=== PATIENT | female | born 1945 | race Caucasian/White ===

== ENCOUNTER 2016-09-20 17:27 | Emergency (ER) | payer MEDICARE, OTHER ==
--- NOTE | 2016-09-20 18:16 | ER PHYSICIAN DOCUMENTATION ---
Physician Documentation [facility] Name:Traci Gilbert Age:71 yrs Sex:Female :1945 Arrival Date:09/20/2016 Time:17:27 Bed5 Private MD:Jose Carlos Rivas ED, Tom Disposition: 09/20 18:51 Chart complete. tl1 Disposition: 09/20/16 18:05 Discharged to Home/Self Care. Impression: Dysfunctional Eustachian Tube. - Condition is Good. - Prescriptions for Ultram 50 mg Oral Tablet - take 1 tablet by ORAL route every 6 hours As needed; 30 tablet. Zofran 4 mg Oral Tablet - take 1-2 tablet by ORAL route every 4-6 hours As needed; 10 tablet. - Medical Reconciliation form form. - Follow up: Jose Carlos Rivas MD; When: 2 - 3 days; Reason: Recheck today's complaints, Continuance of care. Follow up: Private Physician; When: 1 - 2 days; Reason: Recheck today's complaints, Continuance of care. - Problem is new. - Symptoms are unchanged. HPI: 17:33 This 71 yrs old Female presents to ER with complaints of Ear Pain - L. tl1 17:35 This 71 yrs old Female presents to ER via Private Vehicle with complaints of tl1 Ear Pain - L. 17:33 The patient presents with pain. The complaints affect the left ear. tl1 17:35 Onset: The symptom(s)/episode began/occurred suddenly, at 10:00. This pain came on tl1 while she was riding in the car and was approaching [place]; a sharp pressure like feeling that waxes and wanes. She has had an intermittent non-pulsatile hissing sound and decreased hearing in her left ear as well. . 17:35 She says she has been told that she has an abnormal eustachian tube on the left. She tl1 also has a long h/o sinus problems, for which she has been seeing Dr Frey in [place], for years. She says she has never had sinus surgery. She denies sinus pain, dental pain, sore throat. She does have chronic post-nasal drip, which she thinks is a little worse than usual.. She denies any recent URI symptoms. . Historical: - Allergies: Toradol; Norvasc; PENICILLINS; Cymbalta; Bactrim DS; Codeine; Macrobid; Levaquin; Ultracet; Ciprofloxacin; - Home Meds: 1. 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 - Ebola Screening: : Patient negative for fever greater than or equal to 101.5 degrees Fahrenheit, and additional compatible Ebola Virus Disease symptoms. Patient denies exposure to infectious person. Patient denies travel to an Ebola-affected area in the 21 days before illness onset. No symptoms or risks identified at this time. . - Immunization history: Flu Vaccine < 1 year. - Social history: Smoking status: Patient states was never smoker of tobacco. ROS: 17:40 ENT: Positive for ear pain. tl1 17:40 All other systems are negative. Exam: 17:40 Constitutional: This is a well developed, well nourished patient who is awake, alert, tl1 and in no acute distress. 17:40 Head/Face: Normocephalic, atraumatic. tl1 17:40 Eyes: Pupils equal round and reactive to light, extra-ocular motions intact. Lids and lashes normal. Conjunctiva and sclera are non-icteric and not injected. Cornea within normal limits. Periorbital areas with no swelling, redness, or edema. 17:40 ENT: External ear(s): are unremarkable, Ear canal(s): are normal, TM's: slight erythema of the upper TMs bilaterally, over the upper aspect of the handle of the malleus and the pars flaccida, left greater than right. The TMs are otherwise normal bilaterally with normal light reflex. 17:40 Neck: External neck: is normal, ROM/movement: is normal, Lymph nodes: no appreciated lymphadenopathy. 17:40 Cardiovascular: Rate: normal, Rhythm: regular. 17:40 Respiratory: Respirations: normal. Vital Signs: 17:35 Weight 74.84 kg (R); Height 5 ft. 4 in. (162.56 cm) (R); Pain 7/10; tg 17:40 BP 140 / 69; Pulse 81; Resp 16; Temp 98.1(O); Pulse Ox 92% on R/A; tg 17:35 Body Mass Index 28.32 (74.84 kg, 162.56 cm) tg MDM: 17:32 Patient medically screened. tl1 17:35 Differential diagnosis: otitis media, otitis externa, ruptured TM, acute otalgia, tl1 barotrauma , sinusitis, dental infection, pharyngitis. EUSTACHIAN TUBE DYSFUNCTION far more likely. Data reviewed: vital signs, nurses notes, and as a result, I will discharge patient. Counseling: I had a detailed discussion with the patient and/or guardian regarding: the historical points, exam findings, and any diagnostic results supporting the discharge/admit diagnosis, the need for outpatient follow up, to return to the emergency department if symptoms worsen or persist or if there are any questions or concerns that arise at home. Response to treatment: There is no appreciated change of the patient's symptoms at this time, and as a result, I will discharge patient. ED course: No change. . Dispensed Medications: No medications were administered Signatures: Yousif Mccord RN RN tg Mario De La Garza MD MD tl1
--- NOTE | 2016-09-20 18:16 | ER NURSING DOCUMENTATION ---
Nurse's Notes Name:Traci Gilbert Age:71 yrs Sex:Female :1945 Arrival Date:09/20/2016 Time:17:27 Bed5 Private MD:Jose Carlos Rivas Diagnosis:Dysfunctional Eustachian Tube Presentation: 09/20 17:34 Presenting complaint: Patient states: Left ear pain began this [place] Transition of care: patient was not received from another setting of care. 17:34 Acuity: LOUIS 4 tg 17:34 Method Of Arrival: Private Vehicle tg Triage Assessment: 17:38 General: Appears in no apparent distress, well groomed, Behavior is cooperative, tg pleasant. Pain: Complains of pain in left ear. EENT: deferred to Dr. De La Garza's exam. Neuro: Level of Consciousness is awake, alert. Derm: Skin is pink, warm & dry. Historical: - Allergies: Toradol; Norvasc; PENICILLINS; Cymbalta; Bactrim DS; Codeine; Macrobid; Levaquin; Ultracet; Ciprofloxacin; - Home Meds: 1. 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 - Ebola Screening: : Patient negative for fever greater than or equal to 101.5 degrees Fahrenheit, and additional compatible Ebola Virus Disease symptoms. Patient denies exposure to infectious person. Patient denies travel to an Ebola-affected area in the 21 days before illness onset. No symptoms or risks identified at this time. . - Immunization history: Flu Vaccine < 1 year. - Social history: Smoking status: Patient states was never smoker of tobacco. Screenin:37 Infectious Disease Risk Unable to Obtain. Abuse screen: Denies threats or abuse. Denies tg injuries from another. Nutritional screening: Unable to Obtain. Vital Signs: 17:35 Weight 74.84 kg (R); Height 5 ft. 4 in. (162.56 cm) (R); Pain 7/10; tg 17:40 BP 140 / 69; Pulse 81; Resp 16; Temp 98.1(O); Pulse Ox 92% on R/A; tg 17:35 Body Mass Index 28.32 (74.84 kg, 162.56 cm) tg ED Course: 17:30 Patient arrived in ED. ama 17:30 Jose Carlos Rivas MD is Private Physician. ama 17:32 Mario De La Garza MD is Attending Physician. tl1 17:34 Yousif Mccord, LEONID is Primary Nurse. tg 17:35 Triage completed. tg 17:38 Valuables Remains with patient. tg 18:03 Jose Carlos Rivas MD is Referral Physician. tl1 Administered Medications: No medications were administered Outcome: 18:05 Discharge ordered by . tl1 18:14 Discharged to home ambulatory, with friend. tg 18:14 Condition: stable 18:14 Discharge Assessment: Patient awake and alert. 18:14 Discharge instructions given to patient, Pt does not know of any allergy to ultram, does not know why it is listed in her chart, does not know of any previous reactions. Instructed on discharge instructions, follow up and referral plans. medication usage, Prescriptions given X 2. 18:15 Patient left the ED. tg Signatures: Yousif Mccord RN RN Michael Meza, Reg Reg Mario Carlin MD MD tl1
== END 2016-09-20 18:15 | disposition home or self-care (01) ==
LOC: ER 17:27
DX: H69.82 Other specified disorders of Eustachian tube, left ear (principal); R09.82 Postnasal drip; I10 Essential (primary) hypertension; Z79.899 Other long term (current) drug therapy
CPT/HCPCS: 99282; 99283

== ENCOUNTER 2016-10-13 11:45 | Emergency (ER) | payer MEDICARE, OTHER ==
[2016-10-13 12:35] LABS: BASOPHILS 0.7 % (0.0-2.0); EOSINOPHILS# 0.1 X 10^3uL (0.0-0.4); HEMATOCRIT 43.4 % (36.0-48.0); HEMOGLOBIN 14.6 g/dL (12.0-16.0); LYMPHOCYTES 27.2 % (20.0-40.0); LYMPHOCYTES# 1.4 X 10^3uL (0.8-3.8); MEAN CELL VOLUME 90.6 fL (80.0-100.0); MEAN CORPUS. HGB CONCENTRATION 33.6 g/dL (32.0-36.0); MEAN CORPUSCULAR HEMOGLOBIN 30.5 pg (29.0-35.0); MEAN PLATELET VOLUME 7.4 fL (7.4-10.4); MONOCYTES 7.5 % (2.0-10.0); MONOCYTES# 0.4 X 10^3uL (0.2-1.0); NEUTROPHILS 62.6 % (54.0-75.0); NEUTROPHILS# 3.3 X 10^3uL (2.6-6.7); PLATELET COUNT 248 X 10^3uL (130-440); RED CELL DISTRIBUTION WIDTH 11.6 % (11.5-14.5); WHITE BLOOD COUNT 5.2 X 10^3uL (3.9-10.7)
[2016-10-13 12:44] LABS: BLOOD UREA NITROGEN 18 mg/dL (7-17); CALCIUM 9.2 mg/dL (8.4-10.2); CHLORIDE 104 mmol/L (98-107); CREATININE 0.7 mg/dL (0.5-1.0); EST GLOMERULAR FILTRATION RATE > 60 mL/min; GLUCOSE 102 mg/dL (70-100); MAGNESIUM 2.2 mg/dL (1.6-2.3); POTASSIUM 4.1 mmol/L (3.5-5.1); SODIUM 137 mmol/L (137-145)
[2016-10-13 12:56] LABS: TROPONIN I < 0.012 ng/mL (0.00-0.034)
--- NOTE | 2016-10-13 13:22 | ER NURSING DOCUMENTATION ---
Nurse's Notes [facility] Name:Traci Gilbert Age:71 yrs Sex:Female :1945 Arrival Date:10/13/2016 Time:11:45 BedTrauma C Private MD:Jose Carlos Rivas Diagnosis:Chest Pain;Chest Wall Pain Presentation: 10/13 11:55 Acuity: LOUIS 2 st 11:56 Presenting complaint: Patient states: Pt states she had chest heaviness across her ma upper chest intermittently all day yesterday states today just feels SOB Denies pain, states does feel hot and sweaty. Transition of care: Home. 11:56 Method Of Arrival: Private Vehicle ma Triage Assessment: 12:10 General: Appears in no apparent distress, Behavior is cooperative. Pain: Denies pain. ma Respiratory: Breath sounds are clear bilaterally. Reports shortness of breath Onset: The symptoms/episode began/occurred today, the patient has moderate shortness of breath. 12:11 Cardiovascular: Rhythm is sinus rhythm. ma Historical: - Allergies: Toradol; Norvasc; PENICILLINS; Cymbalta; Bactrim DS; Codeine; Macrobid; Levaquin; Ultracet; Ciprofloxacin; - Home Meds: 1. 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 - Ebola Screening: : No symptoms or risks identified at this time. . - Immunization history: Pneumococcal vaccine status is unknown, Flu Vaccine < 1 year. - Social history: Smoking status: Patient states was never smoker of tobacco. Patient/guardian denies using alcohol. Screenin:15 Infectious Disease Risk None. Abuse screen: Denies threats or abuse. Nutritional ma screening: No deficits noted. Assessment: 12:16 Cardiovascular: Rhythm is sinus rhythm. Respiratory: Airway. Respiratory: Respiratory ma effort is even. 13:20 Reassessment: Patient states feeling better. Patient states symptoms have improved. ma Patient appears in no apparent distress at this time. Vital Signs: 12:11 BP 123 / 68; Pulse 84; Resp 19; Temp 98.4; Pulse Ox 92% on R/A; Weight 74.84 kg; Height ma 5 ft. 4 in. (162.56 cm); Pain 0/10; 12:30 BP 143 / 63; Pulse 76; Resp 18; Pulse Ox 94% on R/A; Pain 0/10; ma 13:00 BP 151 / 78; Pulse 72; Resp 25; Pulse Ox 95% ; Pain 0/10; ma 12:11 Body Mass Index 28.32 (74.84 kg, 162.56 cm) ma [place] Coma Score: 12:15 Eye Response: spontaneous(4). Verbal Response: oriented(5). Motor Response: obeys cd commands(6). Total: 15. ED Course: 11:45 client advocate on. Pulse ox on. NIBP on. ma 11:46 Patient arrived in ED. ds 11:47 Jose Carlos Rivas MD is Private Physician. ds 11:[address] 11:56 Pema Ott, RN is Primary Nurse. ma 12:02 Carlos Manuel Teran MD is Attending Physician. cd 12:03 EKG done. (by ED staff). Reviewed by Carlos Manuel Teran MD. ma 12:13 Port Xray Completed. ms 12:15 Valuables Given to family. Patient has correct armband on for positive identification. ma Placed in gown. Bed in low position. Call light in reach. Side rails up X 1. Adult w/ patient. 12:17 EKG attached ma 12:20 Inserted peripheral IV: 20 gauge in right forearm and blood collected. ma 13:05 Seth Ware MD is Referral Physician. cd Administered Medications: 12:30 Drug: Aspirin Chewable Tablet 324 mg; Route: PO; ma 13:21 Follow up: Response: No adverse reaction ma Outcome: 13:06 Discharge ordered by . cd 13:20 Discharged to home ma 13:20 Condition: stable 13:20 Discharge instructions given to family, Instructed on discharge instructions, follow up and referral plans. Demonstrated understanding of instructions. 13:21 Patient left the ED. ma 10/14 12:24 Discharge F/U Call: Spoke with: patient. Overall Care on a scale of 1-10 with 10 ma being the best care, you rate our care as: Other comments: States still feels sore but id trying to rest States care was exceptional Signatures: Sola Al, RN Pema Baires RN RN ma Srot, Liya, Reg Reg Carlos Manuel Almazan MD MD cd Strickland [facility]
--- NOTE | 2016-10-13 13:22 | ER PHYSICIAN DOCUMENTATION ---
Physician Documentation [facility] Name:Traci Gilbert Age:71 yrs Sex:Female :1945 Arrival Date:10/13/2016 Time:11:45 BedTrauma C Private MD:Jose Carlos Rivas ED, Chris Disposition: 10/13 13:05 Critical Care: not applicable. cd Disposition: 10/13/16 13:06 Discharged to Home/Self Care. Impression: Chest Pain, Chest Wall Pain. - Condition is Good. - Discharge Instructions: CHEST PAIN, Noncardiac, CHEST WALL PAIN, Costochondritis. - Medical Reconciliation form form. - Follow up: Seth Ware MD; When: 4- 6 days; Reason: Recheck today's complaints, Continuance of care. - Problem is new. - Symptoms are resolved. - Notes: Take Tylenol or Ibuprofen for pain. No lifting of the baby for 10 days. HPI: 11:47 This 71 yrs old Female presents to ER via Private Vehicle with complaints of cd Chest Pain yesterday and mild Shortness Of Breath today. 11:47 The patient or guardian reports chest pain that is located primarily in the anterior cd chest wall. Onset: yesterday, and improved today, Patient states she is without pain now.. The pain does not radiate. There has been no movement of pain. Associated signs and symptoms: Pertinent positives: shortness of breath, today. Somewhat difficult taking a deep breath, but no cough, sputum production, wheezing, hemoptysis, fever or chills, Pertinent negatives: abdominal pain, diaphoresis, lower extremity pain, lower extremity swelling, lightheadedness, nausea, palpitations, recent travel, syncope, vomiting. The chest pain is described as aching, dull. Duration: The patient or guardian reports a single episode, that is now resolved. Severity of pain: At its worst the pain was moderate in the emergency department the pain has resolved last night. Patient was sent to the ED after calling the Clinic Nurse Line.. Risk factors for coronary artery disease include: This patient has a history of hypertension. Patient has seen ENT and Pulmonary for a workup for difficulty breathing by the glottis and trachea. She has had Endoscopy from Dr. Frey, [place]. No vocal cord dysfunction was noted. No etiology of these symptoms have been determined as of yet.. Historical: - Allergies: Toradol; Norvasc; PENICILLINS; Cymbalta; Bactrim DS; Codeine; Macrobid; Levaquin; Ultracet; Ciprofloxacin; - Home Meds: 1. 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 - Ebola Screening: : No symptoms or risks identified at this time. . - Immunization history: Pneumococcal vaccine status is unknown, Flu Vaccine < 1 year. - Social history: Smoking status: Patient states was never smoker of tobacco. Patient/guardian denies using alcohol. ROS: 12:10 Eyes: Negative for injury, pain, redness, discharge, blurry vision and loss of vision. cd ENT: Negative for injury, pain, epistaxis and discharge. Neck: Negative for injury, pain, stiffness and swelling. Abdomen/GI: Negative for abdominal pain, nausea, vomiting, diarrhea, constipation, distension, melena, hematochezia and hematemesis. Back: Negative for injury, pain or muscle spasms. : Negative for injury, bleeding, discharge, dysuria, frequency, urgency and swelling. MS/Extremity: Negative for injury, deformity, edema, calf tenderness, pain or coldness. Skin: Negative for injury, rash, itching and discoloration. 12:10 Neuro: Negative for headache, weakness, numbness, tingling, and seizure. cd 12:10 Constitutional: Positive for poor PO intake, Negative for chills, fever. 12:10 Cardiovascular: Positive for chest pain, Negative for edema, orthopnea, palpitations. 12:10 Respiratory: Positive for cough, with no reported sputum, shortness of breath, Negative for dyspnea on exertion, hemoptysis, orthopnea, pleurisy, sputum production. 12:10 All other systems are negative. Exam: Head/Face: Normocephalic, atraumatic. Eyes: Pupils equal round and reactive to light, extra-ocular motions intact. Lids and lashes normal. Conjunctiva and sclera are non-icteric and not injected. Cornea within normal limits. Periorbital areas with no swelling, redness, or edema. ENT: Nares patent. No nasal discharge, no septal abnormalities noted. Tympanic membranes are normal and external auditory canals are clear. Oropharynx with no redness, swelling, or masses, exudates, or evidence of obstruction, uvula midline. Mucous membranes moist. Neck: Trachea midline, no thyromegaly or masses palpated, and no cervical lymphadenopathy. Supple, full range of motion without nuchal rigidity, or vertebral point tenderness. No Meningismus. Abdomen/GI: Soft, non-tender, with normal bowel sounds. No distension or tympany. No guarding or rebound. No evidence of tenderness throughout. Back: No spinal tenderness. No costovertebral tenderness. Full range of motion. Skin: Warm, dry with normal turgor. Normal color with no rashes, no lesions, and no evidence of cellulitis. MS/ Extremity: Pulses equal, no cyanosis. Neurovascular intact. Full, normal range of motion. 12:15 Neuro: Awake and alert, GCS 15, oriented to person, place, time, and situation. cd Cranial nerves II-XII grossly intact. Motor strength 5/5 in all extremities. Sensory grossly intact. Cerebellar exam normal. Normal gait. 12:15 Constitutional: The patient appears alert, awake, non-diaphoretic, non-toxic, well developed, well nourished, anxious. 12:15 Chest/axilla: Inspection: normal, Palpation: tenderness, that is moderate, that partially reproduces the patient's complaints. 12:15 Cardiovascular: Rate: normal, Rhythm: regular, Pulses: no pulse deficits are appreciated, Heart sounds: normal, Edema: is not appreciated. 12:15 Respiratory: the patient does not display signs of respiratory distress, Respirations: normal, no acute changes, Breath sounds: are normal, clear throughout. Vital Signs: 12:11 BP 123 / 68; Pulse 84; Resp 19; Temp 98.4; Pulse Ox 92% on R/A; Weight 74.84 kg; Height ma 5 ft. 4 in. (162.56 cm); Pain 0/10; 12:30 BP 143 / 63; Pulse 76; Resp 18; Pulse Ox 94% on R/A; Pain 0/10; ma 13:00 BP 151 / 78; Pulse 72; Resp 25; Pulse Ox 95% ; Pain 0/10; ma 12:11 Body Mass Index 28.32 (74.84 kg, 162.56 cm) ma [place] Coma Score: 12:15 Eye Response: spontaneous(4). Verbal Response: oriented(5). Motor Response: obeys cd commands(6). Total: 15. MDM: 12:00 Data interpreted: stenciler: rate is 72 beats/min, rhythm is normal sinus rhythm, cd regular, with no ectopy, Interpretation: normal rate, normal rhythm, Pulse oximetry: on room air is 95 %. Interpretation: normal. 12:02 Patient medically screened. cd 12:04 Differential diagnosis: acute myocardial infarction, acute pericarditis, anxiety, chest cd wall pain, cholecystitis, costochondritis, esophagitis. 12:05 Patient took aspirin in the Emergency Department. Patient did not receive fibrinolytic cd due to NOT INDICATED. 12:10 Data reviewed: vital signs, nurses notes, old medical records, EKG, and as a result, I cd will continue to observe the patient. 12:15 ECG:. cd 12:17 EKG attached ma 13:00 Test interpretation: by ED physician or midlevel provider: plain radiologic studies, cd Patient's CXR was normal.. Counseling: I had a detailed discussion with the patient and/or guardian regarding: the historical points, exam findings, and any diagnostic results supporting the discharge/admit diagnosis, lab results, radiology results, the need for outpatient follow up, for a recheck, with the patient's primary care provider, to return to the emergency department if symptoms worsen or persist or if there are any questions or concerns that arise at home. Response to treatment: the patient's symptoms have markedly improved after treatment, the patient's condition has returned to base line, and as a result, I will discharge patient. 10/13 12:55 Order name: DDIMER; Complete Time: 13:05 EDMS 10/13 12:59 Interpretation: Normal. cd 10/13 12:56 Order name: BASIC METABOLIC PANEL; Complete Time: 13:05 EDMS 10/13 12:59 Interpretation: Normal. cd 10/13 12:56 Order name: MAGNESIUM; Complete Time: 13:05 EDMS 10/13 12:59 Interpretation: Normal. cd 10/13 12:56 Order name: TROPONIN I; Complete Time: 13:05 EDMS 10/13 12:59 Interpretation: Normal. cd 10/13 12:58 Order name: CBC AUTO DIF, MDIF/RMOR IF IND; Complete Time: 13:05 EDMS 03 12:59 Interpretation: Normal. cd 10/13 12:03 Order name: 12-lead EKG; Complete Time: 13:17 cd 10/13 12:03 Order name: Iv Saline Lock; Complete Time: 13:17 cd 10/13 12:03 Order name: Place Patient On Monitor; Complete Time: 13:17 cd 10/13 12:03 Order name: Pulse Ox Continuous; Complete Time: 13:17 cd EC:04 Rate is 78 beats/min. Rhythm is regular. QRS [place] is Normal. NC interval is normal. QRS cd interval is normal. QT interval is normal. No Q waves. T waves are Normal. No ST changes noted. Clinical impression: Normal ECG and No evidence of ischemia. Interpreted by me. Dispensed Medications: 12:30 Drug: Aspirin Chewable Tablet 324 mg; Route: PO; ma 13:21 Follow up: Response: No adverse reaction ma Signatures: Pema Ott, LEONID RN Carlos Manuel Tomlin MD MD
--- NOTE | 2016-10-14 10:45 | RADIOLOGY REPORT ---
A limited single portable view of the chest is compared with prior examination dated 06/13/2016.The heart, vessels and lungs to be unremarkable. No infiltrate , fluid or pneumothorax is seen. IMPRESSION: Stable, unremarkable limited single portable view of the chest. MTDD
== END 2016-10-13 13:22 | disposition home or self-care (01) ==
LOC: ER 11:45
DX: R07.81 Pleurodynia (principal); R06.02 Shortness of breath; R05 Cough; I10 Essential (primary) hypertension; Z79.899 Other long term (current) drug therapy
CPT/HCPCS: 71010; 80048; 83735; 84484; 85025; 85379; 93005; 93010; 99284